=== PATIENT | male | born 1965 | race Caucasian/White ===

== ENCOUNTER → 2017-02-19 | Outpatient (CLI) | payer MEDICARE ==
[~2017-02-19] MED LIST: ASPIR 8181 MG PO; DELTASONE10 MG PO; DELTASONE20 MG PO; GLUCOPHAGE500 MG PO; LINZESS290 MCG PO; LOPRESSOR50 MG PO; MIRAPEX0.5 MG PO; NEURONTIN300 MG PO; PHENTERMINE HCL30 MG PO; PREDNISONE10 MG PO; REBIF REBI44 MCG/0.5 SUB-Q; TRIAMTERENE-HC1 EAC2 PO; XARELTO20 MG PO
[2017-02-19 07:55] LABS: ANION GAP 10.8 (10.0-19.0); CALCIUM 8.5 mg/dL (8.5-10.5); CREATININE 1.2 mg/dL (0.6-1.3); POTASSIUM 3.8 mMol/L (3.7-5.1)
== END | disposition disaster alternative care site (69) ==
LOC: GLAB 07:00 → GRAD 08:00
PROVIDERS: Specialist
DX: G35 Multiple sclerosis (principal)
CPT/HCPCS: A9577